=== PATIENT | male | born 1995 | race Caucasian/White ===

== ENCOUNTER 2016-10-09 15:09 | Emergency (ER) | payer OTHER ==
[~2016-10-09] VITALS: Ht 185.4 cm; Wt 182.6 kg
[2016-10-09] MEDS ORDERED: FLEXERIL10 MG PO (17:56)
[2016-10-09] MEDS ORDERED: MOTRIN600 MG PO (17:56)
[2016-10-09 18:42] VITALS: BP 102/48
== END 2016-10-09 18:46 | disposition home or self-care (01) ==
LOC: EME 15:09
DX: S01.01XA Laceration without foreign body of scalp, initial encounter (principal); S16.1XXA Strain of muscle, fascia and tendon at neck level, initial encounter; W17.89XA Other fall from one level to another, initial encounter
CPT/HCPCS: 72040; 99281; 99284